=== PATIENT | male | born 1975 | race Two or more races ===

== ENCOUNTER → 2021-04-17 | Outpatient (CLI) | payer OTHER | END | disposition home or self-care (01) | LOC: NUCLEAR 08:47 | PROVIDERS: ATTEND Physical Medicine & Rehabilitation | DX: G90.59 Complex regional pain syndrome I of other specified site (principal); M13.0 Polyarthritis, unspecified | CPT/HCPCS: 78315; A9503 ==

== ENCOUNTER 2023-02-25 12:59 | Emergency (ER) | payer OTHER ==
[~2023-02-25] VITALS: Ht 182.9 cm; Wt 114.8 kg
[2023-02-25] MEDS ORDERED: BENADRYL25 MG (13:50)
[2023-02-25] MEDS ORDERED: LANTUS SOL100 UNIT/1 (13:50)
[2023-02-25] MEDS ORDERED: VAZALORE81 MG (13:51)
[2023-02-25] MEDS ORDERED: PEPCID AC20 MG (13:51)
[2023-02-25] MEDS ORDERED: DEPAKOTE ER500 MG PO (13:51)
[2023-02-25] MEDS ORDERED: BUPROPION HCL200 MG PO (13:51)
[2023-02-25] MEDS ORDERED: NIFEDIPINE20 MG (13:52)
[2023-02-25] MEDS ORDERED: ZESTRIL40 M1 (13:52)
[2023-02-25] MEDS ORDERED: OMEPRAZOLE-BIC1 EAC1 (13:52)
[2023-02-25] MEDS ORDERED: PERCOCET 5-3251 EACH PO (13:53)
[2023-02-25] MEDS ORDERED: GRALISE600 MG (13:53)
[2023-02-25] MEDS ORDERED: HUMALOG100 UNIT/2 SQ (13:53)
[2023-02-25] MEDS ORDERED: CLONAZEPAM1 M1 PO (13:53)
[2023-02-25 14:45] LABS: HEMATOCRIT 42.8 % (39.0-48.0); MEAN CELL VOLUME 86.9 fL (80.0-100.00); MEAN CORPUSCULAR HEMOGLOBIN 28.5 pg (27.00-32.0); MEAN CORPUSCULAR HGB CONC 32.8 g/dl (32.0-36.0); PLATELET COUNT 310 K/uL (150-450); RED BLOOD COUNT 4.93 M/uL (4.00-6.00); RED CELL DISTRIBUTION WIDTH 14.1 % (11.5-14.5)
[2023-02-25] MEDS ORDERED: TUSNEL LIQUID178 ML PO (15:35)
[2023-02-25] MEDS ORDERED: DOLOGEN CAPLET1 EACH PO (15:35)
[2023-02-25] MEDS ORDERED: OSEL75CA PO (15:35)
== END 2023-02-25 15:54 | disposition home or self-care (01) ==
LOC: ER 12:59
PROVIDERS: General Practice
DX: J10.1 Influenza due to other identified influenza virus with other respiratory manifestations (principal); B34.9 Viral infection, unspecified; E11.9 Type 2 diabetes mellitus without complications; Z79.4 Long term (current) use of insulin; Z20.822 Contact with and (suspected) exposure to COVID-19